=== PATIENT | female | born 1950 | race Caucasian/White ===

== ENCOUNTER 2017-01-24 01:18 | Emergency (ER) | payer OTHER ==
[2017-01-24 01:29] VITALS: BP 181/87; BMI 34.9
--- NOTE | 2017-01-24 01:40 | DR.GENAD ---
HPI - PCP Primary Care Physician: MARVIN - Complaint/Symptoms Chief Complaint Doctors Comments: Patient admits to left shoulder pain, has history of arthritis in the past and neck pain. Pain in shoulder is worse. Denies trauma. Pain is severe, sharp,aggravated by movement. Chief Complaint:: SHOULDER PAIN Self Treatment fo Chief Complaint: PT IS TAKING AMOXICILLIN FOR INFECTION - Source History Provided: Patient - Mode of Arrival Mode of Arrival: Ambulatory - Timing Onset of Chief Complaint: 01/21/17 PMH - PMH Past Medical History: Yes Past Medical History: Diabetes, Hypertension Past Medical History Comment: DIVERTICULITIS Past Surgical History: Yes - Family History History of Family Medical Conditions: Yes Family Medical History: Diabetes Mellitus, Hypertension - Social History Does patient currently use any type of tobacco product: No Have you used tobacco products in the last 12 months: No Type of Tobacco Use: None Does any household member use tobacco: No Alcohol Use: None Do you use any recreational Drugs:: No Lives With: Family Lives Where: Home - infectious screening In the last 2 months have you had wt loss of >10#?: NO Have you had fever, night sweats or hemotysis?: No Have you traveled outside the country in the last 6 months?: No Isolation: Standard ROS - Review of Systems Constitutional: No Symptoms Reported Eyes: No Symptoms Reported ENTM: No Symptoms Reported Respiratoy: No Symptoms Reported Cardiovascular: No Symptoms Reported Gastrointestinal/Abdominal: No Symptoms Reported Genitourinary: No Symptoms Reported Neurological: No Symptoms Reported Musculoskeletal: Neck (pain), Shoulder Integumentary: No Symptoms Reported Hematologic/Lymphatic: No Symptoms Reported Endocrine: No Symptoms Reported Psychiatric: No Symptoms Reported All Other Systems: Reviewed and Negative PE - Vital Signs Vitals: Temperature 100.2 F Pulse Rate 98 Respiratory Rate 18 Blood Pressure 181/87 O2 Sat by Pulse Oximetry 98 - General General Appearance: Alert - Head Head Exam: Normal Inspection - Eyes Eye exam: Normal Appearance, PERRL, EOMI - ENT ENT Exam: Normal Exam External Ear Exam: Normal External Inspection TM/Canal Exam: Bilateral Normal Nose Exam: Normal Nose Exam Mouth Exam: Normal Inspection Throat Exam: Normal Inspection - Neck Neck Exam: Normal Inspection, Full ROM - Chest Chest Inspection: Normal Inspection - Respiratory Respiratory Exam: Normal Lung Sounds Bilat Respiratory Exam: Bilateral Clear to Auscultation - Cardiovascular Cardiovascular Exam: Regular Rate, Normal Rhythm - Abdominal Exam Abdominal Exam: Normal Inspection Abdominal Tenderness: negative: RUQ, RLQ, LUQ, LLQ, Epigastrium, Suprapubic, Diffuse, Mild, Moderate, Severe, Other - Extremities Extremities Exam: Normal Inspection, Full ROM - Back Back Exam: Normal Inspection - Neurologic Neurological Exam: Alert, Oriented X3, CN II-XII Intact - Psychiatric Psychiatric Exam: Normal Affect - Skin Skin Exam: Warm, Dry, Intact ROR - XRAY XRAY Interpreted by: Radiologist (Cervical spine: no pathology, Left AC joint: mild osteoarthrisis) - Diagnosis Discharge Problem: Osteoarthritis of AC (acromioclavicular) joint - Discharge Plan Condition: Stable - Follow ups/Referrals Follow ups/Referrals: N[facility],None [Primary Care Provider] - 3 days - Instructions
[2017-01-24] MEDS ORDERED: TORADOL 60 MG VIAL ONE (01:50)
[2017-01-24] MEDS: TORADOL 60 MG VIAL IM ONE (01:52)
--- NOTE | 2017-01-24 02:29 | RAD ---
Three views of the left shoulder Indication: Left shoulder pain. Findings: No fracture or dislocation within the left shoulder. Mild AC joint osteoarthrosis. No loca lizing soft tissue swelling. No displaced left-sided rib fracture. Impression: No acute radiographic abnormality within the left shoulder. Mild left AC joint osteoarth rosis. Reported By:
--- NOTE | 2017-01-24 02:32 | RAD ---
Four views of the cervical spine Indication: Back pain Comparison: None available Findings: The cervical spine is seen well to the level of C6. There is mild spondylosis at C5-6. The re is no fracture or cortical disruption identified within the visualized cervical spine. No spondyl olisthesis. The prevertebral soft tissues are at the upper limits of normal. The atlantoaxial joint is not adequately visualized. Posterior alignment is maintained. Impression: 1.Within the visualized cervical spine no acute fracture or spondylolisthesis. 2.The cervical thoracic junction and atlantoaxial joints are not adequately visualized for exclusion of acute injury. Reported By:
== END 2017-01-24 02:58 | disposition home or self-care (01) ==
LOC: ER 01:18
DX: M19.019 Primary osteoarthritis, unspecified shoulder (principal)
CPT/HCPCS: 72040; 73030; 96372; 99282; J1885

== ENCOUNTER → 2017-01-24 | Outpatient (CLI) | payer OTHER | LOC: RAD 10:08 | PROVIDERS: ATTEND General Practice | DX: Z12.31 Encounter for screening mammogram for malignant neoplasm of breast (principal) | CPT/HCPCS: 77067 ==

== ENCOUNTER → 2018-02-13 | Outpatient (CLI) | payer OTHER ==
--- NOTE | 2018-02-13 13:58 | MG ---
HISTORY: SCREENING Comparison: Multiple priors dating back to September 13, 2013 FINDINGS: Bilateral CC and MLO projections of the right and left breast were obtained. Scattered fibroglandula r tissue is seen to be present without significant interval change. No suspicious architectural dist ortion, mass or clustered microcalcifications can be observed to suggest malignancy. No skin thicken ing or nipple retraction is appreciated. No pathological lymphadenopathy can be identified. Benign- appearing calcifications are noted within the right and left breast. IMPRESSION: NO RADIOGRAPHIC EVIDENCE OF MALIGNANCY. ACR CATEGORY 2 - benign findings. FOLLOW-UP EXAM 1 YEAR. Diagnostic CAD was utilized and reviewed. * 0 (ZERO) - ASSESSMENT INCOMPLETE; ADDITIONAL IMAGING IS NEEDED. * 1/1 (ONE) - NEGATIVE. * 2/II (TWO) - BENIGN FINDINGS. * 3/III (THREE) - PROBABLY BENIGN FINDING; SHORT INTERVAL FOLLOW-UP SUGGESTED. * 4/IV (FOUR) - SUSPICIOUS ABNORMALITY; BIOPSY SHOULD BE CONSIDERED. * 5/V - HIGHLY SUSPICIOUS OF MALIGNANCY; BIOPSY SHOULD BE PERFORMED. A NEGATIVE X-RAY REPORT SHOULD NOT DELAY BIOPSY IF A DOMINANT OR CLINICALLY SUSPICIOUS MASS IS PRESENT; 4 TO 8 PERCENT OF CANCERS ARE NOT IDENTIFIED BY X-RAY. A NEGA TIVE REPORT MAY REINFORCE THE CLINICAL IMPRESSION. ADENOSIS AND DENSE BREASTS MAY OBSCURE AN UNDERLY ING NEOPLASM. Reported By:
== END ==
LOC: RAD 09:08
PROVIDERS: ATTEND General Practice
DX: Z12.31 Encounter for screening mammogram for malignant neoplasm of breast (principal)
CPT/HCPCS: 77067